=== PATIENT | female | born 1970 | race African-American/Black ===

== ENCOUNTER 2023-04-06 00:25 | Emergency (ER) | payer MEDICAID ==
[~2023-04-06] VITALS: Ht 172.7 cm; Wt 190.5 kg
[2023-04-06 00:35] VITALS: BP_SYST 154; PULSE 95; RESP 18; TEMP 96.8; O2SAT 97
[2023-04-06] MEDS ORDERED: GABAPENTIN 300 MG CAPSULE PO ONE (01:30)
[2023-04-06] MEDS ORDERED: ONDANSETRON 4 MG ODT TAB PO ONE (01:30)
[2023-04-06] MEDS ORDERED: MORPHINE 4 MG INJ. 4 MG/ML VIAL IM ONE (01:30)
[2023-04-06] MEDS ORDERED: NEU300 PO (03:08)
[2023-04-06] MEDS ORDERED: CARB100T PO (03:08)
[2023-04-06] MEDS ORDERED: NAPR-1172 PO (03:08)
[2023-04-06] MEDS ORDERED: ACET-2634 PO (03:08)
[2023-04-06 03:16] VITALS: BP_SYST 165; PULSE 92; RESP 20; TEMP 96.8; O2SAT 95
== END 2023-04-06 03:16 | disposition home or self-care (01) ==
LOC: SED 00:25
DX: G50.0 Trigeminal neuralgia (principal); E11.9 Type 2 diabetes mellitus without complications; I10 Essential (primary) hypertension; Z79.899 Other long term (current) drug therapy
CPT/HCPCS: 99284; 96372; Q0162; J2270

== ENCOUNTER 2023-05-09 09:46 | Emergency (ER) | payer MEDICAID ==
[~2023-05-09] VITALS: Ht 172.7 cm; Wt 204.1 kg
[~2023-05-09 09:46] MED LIST: ACET-2634 PO; CARB100T PO; DICL75TA5 PO; FAMO20TA8 PO; FERR236T3 PO; HYDR25TA4 PO; INSU100V9 SQ; LISI20TA30 PO; MECL-109 PO; METF-379 PO; MV,C400T3 PO; NAPR-1172 PO; NEU300 PO; NOR10 PO; SIMV-43 PO
[2023-05-09 09:52] VITALS: BP_SYST 115; PULSE 94; RESP 18; TEMP 96.7; O2SAT 96
[2023-05-09] MEDS ORDERED: MECLIZINE HCL 25 MG TABLET (ANITVERT) PO ONE (10:00)
[2023-05-09] MEDS ORDERED: NACL 0.9% 1,000 ML IV ONE ×2 (10:00→10:45)
[2023-05-09] MEDS ORDERED: ONDANSETRON HCL 4 MG/2 ML VIAL IVP ONE (10:00)
[2023-05-09 10:16] LABS: BASOPHILS # (AUTO) 0.1 K/uL (0.0-0.2); BASOPHILS % (AUTO) 0.9 % (0.0-2.0); EOSINOPHILS # (AUTO) 0.3 K/uL (0.0-0.4); EOSINOPHILS % (AUTO) 3.9 % (0.0-4.0); HEMATOCRIT 40.5 % (36-48); HEMOGLOBIN 12.8 g/dL (12.0-16.0); LYMPHOCYTES # (AUTO) 1.3 K/uL (1.0-5.5); LYMPHOCYTES % (AUTO) 18.9 % (20.5-51.5); MEAN CORPUSCULAR HEMOGLOBIN 27 pg (27-31); MEAN CORPUSCULAR HGB CONC 32 % (32-36); MEAN CORPUSCULAR VOLUME 85 fL (79.0-98.0); MONOCYTES # (AUTO) 0.6 K/uL (0.0-1.0); MONOCYTES % (AUTO) 8.6 % (1.7-9.3); NEUTROPHILS # (AUTO) 4.5 K/uL (1.8-7.7); NEUTROPHILS % (AUTO) 67.7 % (40.0-70.0); PLATELET COUNT (AUTO) 362 K/uL (130-430); RED BLOOD CELL COUNT(AUTO) 4.74 MIL/uL (4.2-6.2); RED CELL DISTRIBUTION WIDTH 15.3 % (9.0-15.0); WHITE BLOOD COUNT (AUTO) 6.7 K/uL (4.8-10.8)
[2023-05-09 10:28] LABS: ANION GAP 9 (5-15); CALCIUM 10.2 mg/dL (8.4-11.0); CARBON DIOXIDE 33 mmol/L (23-29); CHLORIDE 97 mmol/L (98-107); CREATININE 0.87 mg/dL (0.55-1.30); GFR AFRICAN AMERICAN 88 mL/min (>90); GLUCOSE 159 mg/dL (74-106); SODIUM SERUM 139 mmol/L (136-145); UREA NITROGEN, BLOOD 17 mg/dL (8-21)
[2023-05-09 10:29] LABS: GFR NON AFRICAN-AMERICAN 73 mL/min (>90)
[2023-05-09] MEDS ORDERED: DIPHENHYDRAMINE INJ 50 MG/ML VIAL IVP ONE (10:30)
[2023-05-09] MEDS ORDERED: METOCLOPRAMIDE HCL 10 MG/2 ML VIAL IVP ONE (10:30)
[2023-05-09] MEDS ORDERED: DIAZEPAM 10 MG/2 ML DISP.SYRIN IVP ONE (10:30)
[2023-05-09 10:35] LABS: ALANINE AMINOTRANSFERASE 46 U/L (12-78); ALBUMIN 3.8 g/dL (3.4-4.8); ASPARTATE AMINOTRANSFERASE 21 U/L (10-37); BILIRUBIN,DIRECT 0.1 mg/dL (0.0-0.3); TOTAL BILIRUBIN 0.3 mg/dL (0.0-1.0); TOTAL PROTEIN, SERUM 7.9 g/dL (6.4-8.3)
[2023-05-09] MEDS ORDERED: IOHEXOL 350 mgI/mL, 150 ML INFUS..BTL IV ONE (11:24)
[2023-05-09] MEDS ORDERED: MECL-108 PO (13:13)
[2023-05-09] MEDS ORDERED: METO-290 PO (13:13)
[2023-05-09 14:18] VITALS: BP_SYST 129; PULSE 91; RESP 16; TEMP 97.4; O2SAT 95
== END 2023-05-09 13:20 | disposition home or self-care (01) ==
LOC: SED 09:46
DX: H81.10 Benign paroxysmal vertigo, unspecified ear (principal); I10 Essential (primary) hypertension; E11.9 Type 2 diabetes mellitus without complications; Z79.899 Other long term (current) drug therapy
CPT/HCPCS: 99285; 70496; 96374; 71045; 96361; 96375; 80076; 80048; 85025; 84484; 36415; 93005; 70498; 70450; 76376; J8597; J1200; J2765; J2405; Q9967; J7030